=== PATIENT | female | born 1965 | race Caucasian/White ===

== ENCOUNTER 2016-08-25 13:32 | Emergency (ER) | payer OTHER ==
[~2016-08-25] VITALS: Ht 154.9 cm; Wt 59.7 kg
[~2016-08-25 13:32] MED LIST: NAPROXEN500 MG PO; PEN-VEE K,VEET500 MG PO
[2016-08-25] MEDS ORDERED: VITAMIN D PO (14:06)
[2016-08-25] MEDS ORDERED: ADDERALL XR 2525 MG PO (14:06)
[2016-08-25 14:20] LABS: HEMATOCRIT 47.2 % (36.0-46.0); MCH 28.6 PG (29.0-34.0); MCHC 33.3 G/DL (30.0-36.0); MEAN PLAT.VOLUME 10.5 uM^3 (9.5-12.4); PLATELET COUNT 477 K/uL (156-360); RBC DIS.WIDTH-CV 13.9 % (11.8-14.6); RBC DIS.WIDTH-SD 43.9 % (39-53); RED BLOOD COUNT 5.49 M/uL (3.80-5.20); WHITE BLOOD COUNT 16.4 K/uL (4.1-10.2)
[2016-08-25 14:29] LABS: CHLORIDE 98 mEq/L (99-109); POTASSIUM 4.7 mEq/L (3.7-5.4); SODIUM 136 mEq/L (136-147)
[2016-08-25 14:31] LABS: GLUCOSE 123 mg/dL (70-99)
[2016-08-25 14:32] LABS: ANION GAP 10 MEQ/L (2-14)
[2016-08-25 14:33] LABS: TOTAL BILIRUBIN 0.8 mg/dL (0.0-1.0)
[2016-08-25 14:34] LABS: ALKALINE PHOSPHATASE 107 IU/L (3-129)
[2016-08-25 14:35] LABS: GFR ESTIMATE (CALCULATED) > 59 mL/min/
[2016-08-25 14:36] LABS: UREA NITROGEN (BUN) 27 mg/dL (9-23)
[2016-08-25 14:39] LABS: ADD MIUA? YES; BILIRUBIN NEGATIVE; BLOOD NEGATIVE; COLOR YELLOW ((YELLOW)); GLUCOSE (STRIP) NEGATIVE; KETONES NEGATIVE; LEUKOCYTES MODERATE; NITRITE POSITIVE; PROTEIN (STRIP) 30; SPECIFIC GRAVITY 1.015 (1.000-1.030); UROBILINOGEN 0.2 MG/DL (0.2-1.0)
[2016-08-25 14:43] LABS: QUANTITATIVE HCG < 4.0 MIU/ML
[2016-08-25 14:45] LABS: BACTERIA 2+ /HPF; EPITHELIAL CELLS RARE /HPF; MUCUS TRACE /LPF; RED BLOOD CELLS 0-5 /HPF (0-5); UCUL ADDED? YES; WHITE BLOOD CELLS 20-30 /HPF (0-5)
[2016-08-25 15:45] LABS: LIPASE 10 U/L (1.0-51.0)
[2016-08-25] MEDS ORDERED: ZOFRAN ODT4 MG PO (16:35)
[2016-08-25] MEDS ORDERED: CIPRO500 MG PO (16:35)
[2016-08-25 18:08] VITALS: BP 108/80
== END 2016-08-25 18:12 | disposition home or self-care (01) ==
LOC: EME 13:32
DX: N12 Tubulo-interstitial nephritis, not specified as acute or chronic (principal); R11.2 Nausea with vomiting, unspecified; Z90.81 Acquired absence of spleen; R19.7 Diarrhea, unspecified; F17.200 Nicotine dependence, unspecified, uncomplicated
CPT/HCPCS: 74177; 80053; 81003; 83690; 84702; 85027; 87077; 87086; 87186; 99281; 99285; J0696; J2405; J3010; J7030; J7050

== ENCOUNTER 2016-08-27 13:51 | Inpatient (IN) | payer OTHER ==
[~2016-08-27] VITALS: Ht 154.9 cm; Wt 59.3 kg
[~2016-08-27 13:51] MED LIST changes: +ADDERALL XR 2525 MG PO; +CIPRO500 MG PO; +VITAMIN D PO; +ZOFRAN ODT4 MG PO
[2016-08-27 14:09] LABS: HEMATOCRIT 48.6 % (36.0-46.0); MCH 29.4 PG (29.0-34.0); MCHC 34.2 G/DL (30.0-36.0); MCV 86.2 FL (83-99); MEAN PLAT.VOLUME 10.5 uM^3 (9.5-12.4); PLATELET COUNT 487 K/uL (156-360); RBC DIS.WIDTH-CV 13.7 % (11.8-14.6); RBC DIS.WIDTH-SD 43.5 % (39-53); RED BLOOD COUNT 5.64 M/uL (3.80-5.20); WHITE BLOOD COUNT 15.4 K/uL (4.1-10.2)
[2016-08-27 14:17] LABS: CHLORIDE 98 mEq/L (99-109); POTASSIUM 4.2 mEq/L (3.7-5.4); SODIUM 139 mEq/L (136-147)
[2016-08-27 14:20] LABS: GLUCOSE 123 mg/dL (70-99)
[2016-08-27 14:21] LABS: ANION GAP 11 MEQ/L (2-14)
[2016-08-27 14:22] LABS: TOTAL BILIRUBIN 0.9 mg/dL (0.0-1.0)
[2016-08-27 14:23] LABS: ALKALINE PHOSPHATASE 113 IU/L (3-129); GFR ESTIMATE (CALCULATED) > 59 mL/min/
[2016-08-27 14:24] LABS: UREA NITROGEN (BUN) 13 mg/dL (9-23)
[2016-08-27 14:32] LABS: QUANTITATIVE HCG < 4.0 MIU/ML
[2016-08-27 15:30] LABS: ADD MIUA? NO; BILIRUBIN NEGATIVE; BLOOD NEGATIVE; COLOR YELLOW ((YELLOW)); GLUCOSE (STRIP) NEGATIVE; KETONES NEGATIVE; LEUKOCYTES NEGATIVE; NITRITE NEGATIVE; PROTEIN (STRIP) NEGATIVE; SPECIFIC GRAVITY 1.009 (1.000-1.030); UCUL ADDED? NO; UROBILINOGEN 0.2 MG/DL (0.2-1.0)
[2016-08-27 16:09] LABS: LIPASE 11 U/L (1.0-51.0)
[2016-08-27 22:42] VITALS: BP 103/67
[2016-08-27 23:40] LABS: TROP-I INTERPRETATION NEGATIVE; TROPONIN-I < 0.01 ng/mL (0.0-0.30)
[2016-08-28 03:17] VITALS: BP 112/53
[2016-08-28 08:23] LABS: HEMATOCRIT 38.6 % (36.0-46.0); MCH 30.3 PG (29.0-34.0); MCHC 34.2 G/DL (30.0-36.0); MCV 88.5 FL (83-99); MEAN PLAT.VOLUME 11.3 uM^3 (9.5-12.4); PLATELET COUNT 424 K/uL (156-360); RBC DIS.WIDTH-SD 45.2 % (39-53); RED BLOOD COUNT 4.36 M/uL (3.80-5.20); WHITE BLOOD COUNT 10.1 K/uL (4.1-10.2)
[2016-08-28 08:30] VITALS: BP 105/55
[2016-08-28 08:32] LABS: ANION GAP 7 MEQ/L (2-14); CHLORIDE 102 MEQ/L (99-109); GFR ESTIMATE (CALCULATED) > 59 mL/min/; GLUCOSE 83 mg/dL (70-99); POTASSIUM 4.4 MEQ/L (3.7-5.4); SAMPLE HEMOLYSIS CHECK 0; SAMPLE ICTERIC CHECK 0; SAMPLE LIPEMIA CHECK 0; SODIUM 137 MEQ/L (136-147); UREA NITROGEN (BUN) 12 mg/dL (9-23)
[2016-08-28] MEDS ORDERED: VITAMIN D-3 401 EACH PO (11:26)
[2016-08-28 11:57] VITALS: BP 97/56
[2016-08-28 16:02] VITALS: BP 91/54
[2016-08-28 19:49] VITALS: BP 104/53
[2016-08-28 22:22] LABS: TROP-I INTERPRETATION NEGATIVE; TROPONIN-I < 0.01 ng/mL (0.0-0.30)
[2016-08-29 00:11] VITALS: BP 104/55
[2016-08-29 04:28] VITALS: BP 112/67
[2016-08-29 07:35] VITALS: BP 108/65
[2016-08-29 07:57] LABS: BASOPHIL COUNT 0.1 K/uL (0-0.1); EOSINOPHIL (%) 6.7 % (0-5); EOSINOPHIL COUNT 0.6 K/uL (0-0.3); HEMATOCRIT 38.2 % (36.0-46.0); IMMATURE GRANULOCYTE (%) 0.1 % (0.0-0.7); INSTRUMENT ABS NEUTROPHIL CT 1.9 K/uL; LYMPHOCYTE COUNT 5.3 K/uL (1.0-2.8); MCH 29.9 PG (29.0-34.0); MCHC 33.5 G/DL (30.0-36.0); MCV 89.3 FL (83-99); MEAN PLAT.VOLUME 11.4 uM^3 (9.5-12.4); MONOCYTE (%) 11.5 % (3-12); NEUTROPHIL (%) 21.2 % (45-76); NEUTROPHIL COUNT 1.9 K/uL (1.8-6.4); PLATELET COUNT 418 K/uL (156-360); RBC DIS.WIDTH-CV 14.1 % (11.8-14.6); RBC DIS.WIDTH-SD 45.4 % (39-53); RED BLOOD COUNT 4.28 M/uL (3.80-5.20); WHITE BLOOD COUNT 8.9 K/uL (4.1-10.2)
[2016-08-29 08:22] LABS: ALKALINE PHOSPHATASE 64 IU/L (3-129); ANION GAP 7 MEQ/L (2-14); CHLORIDE 105 MEQ/L (99-109); GFR ESTIMATE (CALCULATED) > 59 mL/min/; GLUCOSE 76 mg/dL (70-99); POTASSIUM 4.3 MEQ/L (3.7-5.4); SAMPLE HEMOLYSIS CHECK 0; SAMPLE ICTERIC CHECK 0; SAMPLE LIPEMIA CHECK 0; SODIUM 140 MEQ/L (136-147); TOTAL BILIRUBIN 0.5 MG/DL (0.0-1.0); UREA NITROGEN (BUN) 10 mg/dL (9-23)
[2016-08-29 16:26] VITALS: BP 105/56
[2016-08-29 22:30] LABS: TROP-I INTERPRETATION NEGATIVE; TROPONIN-I < 0.01 ng/mL (0.0-0.30)
[2016-08-30 00:35] VITALS: BP 114/66
[2016-08-30 06:19] LABS: HEMATOCRIT 36.8 % (36.0-46.0); MCH 28.3 PG (29.0-34.0); MCHC 31.8 G/DL (30.0-36.0); MCV 89.1 FL (83-99); MEAN PLAT.VOLUME 10.9 uM^3 (9.5-12.4); NRBC (%) 0.2 /100 WBC (0-0); PLATELET COUNT 407 K/uL (156-360); RBC DIS.WIDTH-SD 45.7 % (39-53); RED BLOOD COUNT 4.13 M/uL (3.80-5.20); WHITE BLOOD COUNT 9.7 K/uL (4.1-10.2)
[2016-08-30 06:47] LABS: ALKALINE PHOSPHATASE 59 IU/L (3-129); ANION GAP 5 MEQ/L (2-14); CHLORIDE 108 MEQ/L (99-109); GFR ESTIMATE (CALCULATED) > 59 mL/min/; GLUCOSE 79 mg/dL (70-99); POTASSIUM 3.9 MEQ/L (3.7-5.4); SAMPLE HEMOLYSIS CHECK 0; SAMPLE ICTERIC CHECK 0; SAMPLE LIPEMIA CHECK 0; SODIUM 142 MEQ/L (136-147); TOTAL BILIRUBIN 0.4 MG/DL (0.0-1.0); UREA NITROGEN (BUN) 6 mg/dL (9-23)
[2016-08-30 07:23] LABS: ABS NEUTROPHIL COUNT 2.4; ATYPICAL LYMPHOCYTE 1.8 %; BASOPHILS 0.9 %; EOSINOPHIL ABS CT 0.6; EOSINOPHILS 6.4 % (0-5.0); INSTRUMENT ABS NEUTROPHIL CT 1.6 K/uL; LYMPHOCYTES 59.1 % (15.0-45.0); SEG.NEUTROPHILS 24.5 % (46.0-76.0); SMUDGE CELLS 24.5
[2016-08-30 07:34] VITALS: BP 102/68
[2016-08-30 08:10] VITALS: BP 102/68
[2016-08-30] MEDS ORDERED: ENDOCET 5-3251 EACH PO (15:20)
== END 2016-08-30 18:13 | disposition home or self-care (01) | DRG 445 ==
LOC: EME 13:51 → EDOF 20:43 → 2EAST 20:43
PROVIDERS: Hospitalist
DX: K80.50 Calculus of bile duct without cholangitis or cholecystitis without obstruction (principal); N39.0 Urinary tract infection, site not specified; B96.20 Unspecified Escherichia coli [E. coli] as the cause of diseases classified elsewhere; G89.29 Other chronic pain; M54.9 Dorsalgia, unspecified; R00.0 Tachycardia, unspecified; J45.909 Unspecified asthma, uncomplicated; K92.1 Melena; F17.210 Nicotine dependence, cigarettes, uncomplicated; Z90.81 Acquired absence of spleen
CPT/HCPCS: 74176; 74177; 76705; 78227; 80048; 80053; 81003; 83605; 83690; 84484; 84702; 85025; 85027; 87040; 87077; 87086; 87186; 90732; 93005; 93306; 99281; 99284; 99285; A9537; C9113; G0009; J0696; J1644; J1956; J2270; J2405; J2805; J3010; J7030; J7050; J7120